=== PATIENT | female | born 1985 | race Caucasian/White ===

== ENCOUNTER 2020-01-09 04:28 | Inpatient (IN) | payer OTHER, SELFPAY ==
[2020-01-09] VITALS (76 sets, daily range): BP systolic 93–124; BP diastolic 49–89; PULSE 58–180; RESP 14–18; TEMP 36.3–36.9; O2SAT 97–100; BMI 34.3
--- NOTE | 2020-01-09 04:28 | LDADM ---
This patient, Sukhjinder Sanchez, was admitted to Labor/Delivery/Recovery 104 on 01/09/20 at 04:28. Plans for labor, pain management and were discussed with patient. Patient/family oriented to hospital policies and general routines including ID bracelet, bed and alarms, visiting hours, pain management, procedures, bathroom and other care routines, personal items, smoking policy, room service/diet and guest tray routines, infant security routines, and visiting hours. Patient/Family are encouraged to report perceived risks to care and to ask questions if they do not understand what they are told or what they should do. See OBIX for further documentation.
[2020-01-09] MEDS: AMPICILLIN 2 GM/NS 100 ML 2 GM/100 ML BAG IVPB (04:51)
[2020-01-09] MEDS: LACTATED RINGERS 1,000 ML 125 ML IV CONT ×3 (04:51→07:00)
[2020-01-09 05:13] LABS: Basophils Percent Auto 0.3 % (0.2-1.2); Eosinophils Absolute Auto 0.1 K/mm3 (0-0.3); Eosinophils Percent Auto 0.9 % (0-4.4); Hematocrit 34.4 % (37.0-47.0); Hemoglobin 11.4 g/dL (12.0-15.0); Immature Granulocyte Absolute 0.15 K/mm3 (0.00-0.031); Immature Granulocyte Percent A 1.3 % (0-0.5); Lymphocytes Absolute Auto 2.65 K/mm3 (0.9-3.2); Lymphocytes Percent Auto 22.6 % (18.3-44.2); Mean Corpuscular HGB Conc 33.1 g/dl (32-36); Mean Corpuscular Volume 81.3 fl (80-100); Mean Platelet Volume 10.3 fl (7.4-10.4); Monocytes Absolute Auto 0.6 K/mm3 (0.1-0.6); Monocytes Percent Auto 4.9 % (2.6-8.5); Neutrophils Absolute Auto 8.2 K/mm3 (1.3-6.7); Platelet Count Result 258 k/mm3 (150-375); Red Blood Count 4.23 M/mm3 (4.2-5.4); Red Cell Distribution Width 12.7 % (11.5-14.5); White Blood Count 11.7 K/mm3 (4.5-10.0)
--- NOTE | 2020-01-09 05:22 | P.PNAN_ITS ---
Anes - Initial Pre Proc Eval Procedure: labor epidural Date/Time: 01/09/20 05:22 Surgeon: Julius Chirinos MD Pre Op Diagnosis: Contractions Patient Data Age: 34 Gender: F Height: 1.6 m Weight: 88 kg Last Vital Signs Pulse 90 01/09/20 05:22 BP 112/61 01/09/20 05:22 Pulse Ox 100 01/09/20 05:20 Allergies Allergy/AdvReac Type Severity Reaction Status Date / Time No Known Allergies Allergy Verified 12/15/19 13:39 Home Medications Medication Instructions Recorded Confirmed Type PNV cmb#95-ferrous fumarate-FA 1 tablet PO DAILY 12/15/19 12/15/19 History [] Laboratory Tests 01/09/20 01/09/20 04:50 04:50 WBC 11.7 K/mm3 H K/mm3 (4.5-10.0) RBC 4.23 M/mm3 M/mm3 (4.2-5.4) Hgb 11.4 g/dL L g/dL (12.0-15.0) Hct 34.4 % L % (37.0-47.0) MCV 81.3 fl fl (80-100) MCH 27.0 pg pg (26-34) MCHC 33.1 g/dl g/dl (32-36) RDW 12.7 % % (11.5-14.5) Plt Count 258 k/mm3 k/mm3 (150-375) MPV 10.3 fl fl (7.4-10.4) Immature Gran % (Auto) 1.3 % H % (0-0.5) Neut % (Auto) 70.0 % % (45.5-73.1) Lymph % (Auto) 22.6 % % (18.3-44.2) [place] % (Auto) 4.9 % % (2.6-8.5) Eos % (Auto) 0.9 % % (0-4.4) Baso % (Auto) 0.3 % % (0.2-1.2) Lymph # (Auto) 2.65 K/mm3 K/mm3 (0.9-3.2) [place] # (Auto) 0.6 K/mm3 K/mm3 (0.1-0.6) Eos # (Auto) 0.1 K/mm3 K/mm3 (0-0.3) Baso # (Auto) 0.0 K/mm3 K/mm3 (0.0-0.1) Abs Immat Gran (auto) 0.15 K/mm3 H K/mm3 (0.00-0.031) Absolute Neuts (auto) 8.2 K/mm3 H K/mm3 (1.3-6.7) Absolute Nucleated RBC 0.0 K/mm3 K/mm3 (0.0-0.012) Nucleated RBC % 0.0 % % (0.0-0.2) RPR Pending Patient hx anesthesia problems: none Family hx anesthesia problems: none PMFSH Family History Family History Father Non Hodgkin's lymphoma Grandparent Diabetes mellitus Social History Social History Smoking status: Current every day smoker Tobacco type: cigarettes Substance use: never Spiritual care concerns: No Anes - Eval Final PreProcedure Day of Procedure 01/09/20 05:22 Patient weight: overweight Heart: regular rate and rhythm Lungs: clear to auscultation and normal air movement Airway: Mallampati scale Neurological: alert and oriented ASA classification: II Emergent: no Anesthetic plan: proceed Anesthesia type and monitoring: regional epidural and standard monitoring Informed Consent: The patient's anesthetic plan and its attendant risks and benefits were discussed with the patient/family/POA. Questions were solicited and answers provided to the satisfaction of the patient/family/POA.
--- NOTE | 2020-01-09 05:33 | WPDHPUPDATE1 ---
History and Physical Update Update Date/Time: 01/09/20 05:33 34 yo who presents in labor. She reports regular contractions. She denies vaginal bleeding or LOF. she endorses good FM. Her has been uncomplicated. History and Physical has been reviewed, including an updated exam of the patient. There are NO changes in the patient's condition. Risks, benefits, and alternatives have been discussed and questions answered. Patient agrees to proceed with procedure. A/P: 34 yo who presents in labor admit to L&D routine admission orders FHT cat 2 contractions q 4 min on toco GBS +, will start PCN in labor Rh + cvx 7 cm, intact expectant management
[2020-01-09] MEDS: AMPICILLIN 1 GM/NS 50 ML 1 GM/50 ML BAG IVPB (08:35)
[2020-01-09] MEDS: OXYTOCIN 30 UNITS/NS 500 ML 30 UNITS/500 ML BAG IV CONT (08:35)
--- NOTE | 2020-01-09 11:29 | PM.OBPRVD ---
OB - Delivery Note Procedure Delivery date: 01/09/20 Intrapartal events: None Induction method: none Delivery monitor: external FHT Route of delivery: Episiotomy description: None Laceration description: Vaginal - 1st Degree Delivery repair: vicryl Specimen: No Estimated blood loss (mL): 57 Anesthesia type: Epidural Disposition: floor [place] Baby Date of : 01/09/20 Time of : 11:21 Weeks of gestation at delivery: 39 presentation: vertex position: Right Occiput Anterior Placenta delivery description: Spontaneous cord vessel description: 3 Vessels and Reduced score one minute: 8 score five minutes: 9
[2020-01-09] MEDS: OXYTOCIN 30 UNITS/NS 500 ML 30 UNITS/500 ML BAG 125 UNITS IV CONT (11:58)
[2020-01-09] MEDS: LORATADINE 10 MG TABLET PO (12:35)
[2020-01-09 13:21] LABS: Rapid Plasma Reagin Non-Reactive (NonReactive)
[2020-01-09] MEDS: WITCH HAZEL 40 PADS 1 PAD TOPICAL (13:48)
[2020-01-09] MEDS: BENZOCAINE 20% AER SPR (*SP) 56 GM CAN 1 SPRAY TOPICAL (13:48)
--- NOTE | 2020-01-09 14:12 | PC.NURSE ---
Patient transferred to post room #291 via wheelchair. Support person present. Oriented to unit, room, information board, rooming in, admission packet and security measures. Patient verbalizes understanding.
[2020-01-09] MEDS: IBUPROFEN 600 MG TABLET PO ×2 (14:44→20:49)
[2020-01-09] MEDS: LANOLIN (LANSINOH) 7.5 GM CREAM 1 APPLIC TOPICAL (14:45)
[2020-01-09] MEDS: ACETAMINOPHEN 325 MG TABLET 650 MG PO ×2 (15:37→22:20)
[2020-01-10] MEDS: IBUPROFEN 600 MG TABLET PO ×3 (03:18→23:28)
[2020-01-10 04:12] LABS: Hematocrit 29.9 % (37.0-47.0); Hemoglobin 9.6 g/dL (12.0-15.0)
--- NOTE | 2020-01-10 06:10 | P.PNOB_ITS ---
OB - PN: Subj Subjective Date/time seen: 01/10/20 06:10 Patient comments: no complaints and pain well controlled baby status: doing well and nursing well OB - PN: Obj Data Labs CBC & Chem 7: 01/10/20 04:00 Labs: Laboratory Results - last 24 hr 01/09/20 01/09/20 01/10/20 04:50 04:50 04:00 Hgb 9.6 L Hct 29.9 L RPR Non-reactive Blood Type A Positive Antibody Screen Negative OB - PN A/P Plan day: 1 Plan: routine care, discharge home and follow up 6 weeks Time Spent With Patient Time: Total time spent is greater than 50% in coordination of care (as doc umented) at patient's floor/unit and/or counseling patient: Time with patient: less than 15 minutes Review of Systems Review of Systems: All systems reviewed & are unremarkable except as noted in HPI and below Exam Const: General: no acute distress Eyes: General: appearance normal, both eyes and all related structures Neck: Neck: supple and no JVD Thyroid: thyroid normal Resp: Effort & Inspection: normal respiratory effort Auscultation: clear to auscultation bilaterally Cardio: Rate: regular rate Rhythm: regular rhythm GI: Inspection: non-distended GI Palp: Yes Soft to palpation, No Tenderness to palpation present (GI) and No Guarding due to palpation present (GI) Auscultation: normal bowel sounds : General: Yes bladder normal to palpation External Female Exam: normal external appearance Speculum Exam - Vagina: normal vaginal discharge and No vaginal bleeding Speculum Exam - Cervix: nontender Bimanual exam- vagina & uterus: bladder normal to palpation and No Cervical tenderness present OB/external & speculum: No vaginal bleeding Skin: General skin exam: no rashes or lesions noted Extrem: General: normal to inspection and no edema Psych: Mental Status: mental status grossly normal Affect: normal affect
--- NOTE | 2020-01-10 06:11 | P.DS_ITS ---
DS: Admitting Diagnosis Admitting Diagnosis Admitting Diagnosis: term DS: Summary Time Spent with Patient Time attestation: Total time spent providing and/or coordinating discharge services: Exam Const: General: no acute distress Eyes: General: appearance normal, both eyes and all related structures Neck: Neck: supple and no JVD Thyroid: thyroid normal Resp: Effort & Inspection: normal respiratory effort Auscultation: clear to auscultation bilaterally Cardio: Rate: regular rate Rhythm: regular rhythm GI: Inspection: non-distended GI Palp: Yes Soft to palpation, No Tenderness to palpation present (GI) and No Guarding due to palpation present (GI) Auscultation: normal bowel sounds : General: Yes bladder normal to palpation External Female Exam: normal external appearance Speculum Exam - Vagina: normal vaginal discharge and No vaginal bleeding Speculum Exam - Cervix: nontender Bimanual exam- vagina & uterus: bladder normal to palpation and No Cervical tenderness present OB/external & speculum: No vaginal bleeding Skin: General skin exam: no rashes or lesions noted Extrem: General: normal to inspection and no edema Psych: Mental Status: mental status grossly normal Affect: normal affect DS: Data Data Completed and Pending Labs on day of discharge: Labs from last 24 hours 01/10/20 01/09/20 01/09/20 04:00 04:50 04:50 Hgb 9.6 L Hct 29.9 L RPR Non-reactive Blood Type A Positive Antibody Screen Negative Discharge Plan Discharge Attending physician on discharge: Julius Chirinos Consulting providers: Chandu Gamino Discharging Clinician: Julius hCirinos Patient Disposition: Home, Self-Care Activity: may shower, no straining and pelvic rest Diet: heart healthy Wound Care Instructions: follow printed instructions Patient Instructions: How to Stop Smoking (DC), Antibiotic Form Stand Alone Forms: General Discharge Information Follow-up/Referrals: Julius Chirinos MD [Physician] - Discharge Medications: Continued PNV cmb#95-ferrous fumarate-FA [] 28 mg iron- 800 mcg Tablet 1 tablet PO DAILY RF: 0 Date of admission: 01/09/20 04:28 Primary Care Provider: PHYSICIAN,QUENCHING CAR OPERATOR Admitting Provider: Julius Chirinos Attending physician on admission: Julius Chirinos
[2020-01-10] MEDS: POLYSACCHARIDE IRON COMPLEX 150 MG CAPSULE PO ×2 (07:44→17:09)
[2020-01-10] MEDS: MULTIVIT/MIN/PREN/FOL AC/IRON TABLET 1 TAB PO (07:44)
[2020-01-10] MEDS: ACETAMINOPHEN 325 MG TABLET 650 MG PO ×3 (07:45→20:05)
[2020-01-10 08:35] VITALS: BP 117/74; PULSE 69; RESP 16; TEMP 36.6; O2SAT 99
--- NOTE | 2020-01-10 08:52 | WPDANLDPN2 ---
Anes-Prog Note L&D Date/Time: 01/10/20 08:52 Comfortable throughout: labor and delivery Neuraxial method: epidural Epidural/Spinal procedure site: clean & non-tender Neuro status: Neuro function grossly intact. Cardiovascular status: normal Respiratory status: normal Airway patency: baseline Mental status: baseline Post-Op hydration status: normal Vital Signs: Last Vital Signs Temp 36.8 C 01/09/20 18:42 Pulse 58 L 01/09/20 18:42 Resp 14 01/09/20 18:42 BP 110/69 01/09/20 18:42 Pulse Ox 98 01/09/20 18:42 Patient feedback: Patient satisfied with anesthetic care.
--- NOTE | 2020-01-10 13:45 | PC.NURSE ---
1200 breast feeding note; visited with mother; she reports baby had just finished a feeding; reviewed q2-3h and on demand breast feedings, duration of feedings, nipple care, importance of deep maintained latch. She denies nipple pain. She reports strong breast feeding history with her first baby, and seems comfortable and confident with this baby, reporting baby has been an eager breast feeder. Reviewed s/s of mastitis, and care of breasts through engorgement. LC contact information shown to pt. Pt and FOB seemed attentive and voiced understanding of information shared.
[2020-01-10] MEDS: DOCUSATE SODIUM 100 MG CAPSULE PO (17:09)
[2020-01-10 20:00] VITALS: BP 125/82; PULSE 91; RESP 16; TEMP 36.8
[2020-01-11] MEDS: ACETAMINOPHEN 325 MG TABLET 650 MG PO ×2 (02:16→10:10)
--- NOTE | 2020-01-11 06:44 | P.PNOB_ITS ---
OB - PN: Subj Subjective Date/time seen: 01/11/20 06:44 Patient comments: no complaints baby status: doing well and nursing well OB - PN: Obj Data Labs CBC & Chem 7: 01/10/20 04:00 OB - PN A/P Plan day: 2 Plan: routine care, discharge home and follow up 6 weeks Time Spent With Patient Time: Total time spent is greater than 50% in coordination of care (as documented) at patient's floor/unit and/or counseling patient: Time with patient: less than 15 minutes Review of Systems Review of Systems: All systems reviewed & are unremarkable except as noted in HPI and below Exam Const: General: no acute distress Eyes: General: appearance normal, both eyes and all related structures Neck: Neck: supple and no JVD Thyroid: thyroid normal Resp: Effort & Inspection: normal respiratory effort Auscultation: clear to auscultation bilaterally Cardio: Rate: regular rate Rhythm: regular rhythm GI: Inspection: non-distended GI Palp: Yes Soft to palpation, No Tenderness to palpation present (GI) and No Guarding due to palpation present (GI) Auscultation: normal bowel sounds : General: Yes bladder normal to palpation External Female Exam: normal external appearance Speculum Exam - Vagina: normal vaginal discharge and No v aginal bleeding Speculum Exam - Cervix: nontender Bimanual exam- vagina & uterus: bladder normal to palpation and No Cervical tenderness present OB/external & speculum: No vaginal bleeding Skin: General skin exam: no rashes or lesions noted Extrem: General: normal to inspection and no edema Psych: Mental Status: mental status grossly normal Affect: normal affect
[2020-01-11 08:05] VITALS: BP 131/75; PULSE 86; RESP 18; TEMP 37.1; O2SAT 98
[2020-01-11] MEDS: MULTIVIT/MIN/PREN/FOL AC/IRON TABLET 1 TAB PO (10:06)
[2020-01-11] MEDS: DOCUSATE SODIUM 100 MG CAPSULE PO (10:06)
[2020-01-11] MEDS: IBUPROFEN 600 MG TABLET PO (10:07)
[2020-01-11] MEDS: POLYSACCHARIDE IRON COMPLEX 150 MG CAPSULE PO (10:07)
--- NOTE | 2020-01-11 11:10 | PC.NURSE ---
Consulted with patient, upon entering mother has infant to breast. Mother has latched deeply in cross cradle. Infant nursed eagerly, with steady draws and frequent swallowing noted. Reviewed positioning/alignment , holding breast and asymmetrical latch on. Reviewed signs of a correct latch, effective nursing and suck swallow ratio. Nipple care reviewed. Reviewed feeding cues, frequencies, duration of feedings, feeding elimination flow sheet, and signs of adequate intake. Mother reports she breastfed last child for 11 months and plans to allow this infant to breastfeed as long as she will. Mother is feeding as required and waking to feed if needed. Infant has had at least 8 effective feedings in the past 24 hours, and is currently meeting outcomes for weight, output, jaundice and feeding frequencies. Mother states she feels confident to continue effective at home. Reviewed transition to breast milk, signs of adequate intake, and engorgement/relief. Instructed to call ICP if intake/output less than required. Reviewed regular medications mother is taking. Information provided per Catherine. Reviewed community resources on the [facility] website and in the Mom/Baby guide. Information on outpatient services provided. Mother has no further questions at this time.
[2020-01-11 15:00] VITALS: BP 124/78; PULSE 75; RESP 16; TEMP 37.6; O2SAT 95
[2020-01-13 11:13] VITALS: BP 137/90; PULSE 91; RESP 20
== END 2020-01-11 13:55 | disposition home or self-care (01) | DRG 807 ==
LOC: ANHLDR 05:17 → ANHOB2 14:24
PROVIDERS: Admitting Provider Obstetrics & Gynecology; Visit Provider Obstetrics & Gynecology
DX: O99.824 Streptococcus B carrier state complicating childbirth (principal); Z37.0 Single live birth; Z3A.40 40 weeks gestation of pregnancy; O76 Abnormality in fetal heart rate and rhythm complicating labor and delivery; O70.0 First degree perineal laceration during delivery
CPT/HCPCS: 36415; 85014; 85018; 85025; 86592; 86850; 86900; 86901; A9270; J0290; J2590; J2795; J7120

== ENCOUNTER 2023-02-20 02:32 | Emergency (ER) | payer OTHER, SELFPAY ==
--- NOTE | ~2023-02-20 | CT_ITS ---
EXAMINATION: CT abdomen pelvis w con DATE: 02/20/2023 04:58 INDICATION: Left abdominal pain. TECHNIQUE: Computed tomography (CT) of the abdomen and pelvis was performed with 100 mL Omnipaque 350 intravenous contrast. Automated exposure control and iterative reconstruction technique were employe d. The dose-length product was 635.21 mGy-cm. COMPARISON: None. FINDINGS: The visualized portions of the lung bases demonstrate mild atelectasis. No pleural effusion . The heart size is normal. No pericardial effusion. There is a 10 mm cyst in the liver. The gallblad evens, spleen, pancreas, adrenal glands, and kidneys are normal. There is an intrauterine device in abn ormal position. One prong sits in the myometrium, and the second prong perforates through the myometr ium. There are no dilated loops of bowel. The appendix is normal. There is mild subcutaneous fat stra nding with foci of gas in left flank. There are no pathologically enlarged lymph nodes. There is no f ree intraperitoneal fluid. There is mild osteoarthritis of the sacroiliac joints. IMPRESSION: 1. Mild subcutaneous fat stranding with foci of gas in left flank. This finding may be secondary to t rauma such as an injection or laceration. Correlate clinically for cellulitis or necrotizing fasciiti s. 2. Intrauterine device in abnormal position with perforation through the myometrium. Reviewed, dictated and finalized at location E. IMPRESSION: 1. Mild subcutaneous fat stranding with foci of gas in left flank. This finding may be secondary to trauma such as an injection or laceration. Correlate clini juan for cellulitis or necrotizing fasciitis. 2. Intrauterine device in abnormal position with perforation through the myomet rium.
[2023-02-20 02:35] VITALS: BP 168/98; PULSE 84; RESP 14; TEMP 36.2; O2SAT 100
[2023-02-20] MEDS: SODIUM CHLORIDE 0.9% IV 1,000 ML 999 ML IV CONT (03:04)
[2023-02-20 03:06] LABS: Basophils Percent Auto 0.3 % (0.2-1.2); Eosinophils Absolute Auto 0.1 K/mm3 (0-0.3); Eosinophils Percent Auto 0.5 % (0-4.4); Hematocrit 43.4 % (37.0-47.0); Hemoglobin 14.8 g/dL (12.0-15.0); Immature Granulocyte Absolute 0.04 K/mm3 (0.00-0.031); Immature Granulocyte Percent A 0.4 % (0-0.5); Mean Corpuscular HGB Conc 34.1 g/dl (32-36); Mean Corpuscular Volume 84.9 fl (80-100); Mean Platelet Volume 9.6 fl (7.4-10.4); Monocytes Absolute Auto 0.5 K/mm3 (0.1-0.6); Monocytes Percent Auto 4.6 % (2.6-8.5); Neutrophils Absolute Auto 8.4 K/mm3 (1.3-6.7); Neutrophils Percent Auto 73.2 % (45.5-73.1); Platelet Count Result 305 k/mm3 (150-375); Red Blood Count 5.11 M/mm3 (4.2-5.4); Red Cell Distribution Width 12.1 % (11.5-14.5); White Blood Count 11.4 K/mm3 (4.5-10.0)
[2023-02-20] MEDS: KETOROLAC 30 MG/ML VIAL (*BKC) IV PUSH (03:06)
[2023-02-20] MEDS: ONDANSETRON INJ 4 MG/2 ML VIAL IV PUSH (03:06)
--- NOTE | 2023-02-20 03:14 | ED.GENADULT ---
HPI - General Adult General Chief complaint: Abdominal Pain Stated complaint: vomiting, abd pain, left lower back pain Time Seen by Provider: 02/20/23 02:43 History of Present Illness HPI narrative: Patient 37-year-old female who presents the emergency room with chief complaint of abdominal pain nausea and vomiting. Patient reports that she ate at [employer] and reports that was on evening. The patient states that all throughout the morning she had multiple episodes of nausea and vomiting reports she has cramping sensations throughout her abdomen. The patient reports that this she had no diarrhea with this reports her last bowel movement was on . Related Data Home Medications Medication Instructions Recorded Confirmed vit no.95-ferrous 1 tablet PO DAILY 12/15/19 12/15/19 fumarate 28 mg-folic acid 800 mcg tablet () Allergies Allergy/AdvReac Type Severity Reaction Status Date / Time No Known Allergies Allergy Verified 02/20/23 02:32 Review of Systems Review of Systems: A 10 system review of systems was completed on the patient and is negative except for what is stated in the HPI. Nursing and ancillary documentation was reviewed. [facility] Family History Family History Father Non Hodgkin's lymphoma Grandparent Diabetes mellitus Social History Social History Smoking status: Current every day smoker Tobacco type: cigarettes Substance use: never Spiritual care concerns: No Exam Narrative: GENERAL: Well-appearing, well-nourished, and in no acute distress. HEAD: Normocephalic, atraumatic. EYES: PERRLA and EOMI. ENT: Nares clear, no rhinorrhea or epistaxis. Mucous membranes moist. NECK: Supple. CHEST: Clear to auscultation. No respiratory distress. HEART: Regular rate and rhythm. No murmur heard. Normal peripheral pulses. ABDOMEN: Soft, tender to palpation in the epigastric region, nondistended, normal active bowel sounds. EXTREMITIES: Normal range of motion. No edema. SKIN: Warm, dry, no rash. NEURO: No focal deficits. Alert and oriented x3. PSYCH: Normal mood and affect. Course Vital Signs Vital signs: Vital Signs Temperature 36.2 C L 02/20/23 02:35 Pulse Rate 84 02/20/23 02:35 Respiratory Rate 14 02/20/23 02:35 Blood Pressure 168/98 H 02/20/23 02:35 Pulse Oximetry 100 02/20/23 02:35 Oxygen Delivery Room Air 02/20/23 02:35 Temperature 36.2 C L 02/20/23 02:35 Pulse Rate 84 02/20/23 02:35 Respiratory Rate 14 02/20/23 02:35 Blood Pressure 168/98 H 02/20/23 02:35 Pulse Oximetry 100 02/20/23 02:35 Oxygen Delivery Room Air 02/20/23 02:35 Procedures Other Procedure Procedure 1: Other Procedure: Procedure: Removal of IUD With a speculum the cervix was visualized and the IUD strings were visualized and grafts with a ring forcep and under gentle traction the IUD was removed Medical Decision Making MDM Narrative Medical decision making narrative: Differential diagnosis includes gastroenteritis, UTI, intra-abdominal infection colitis diverticulitis. Laboratory studies were obtained which showed a white count of 11.4 electrolytes and liver enzymes are within normal limits urinalysis showed 10-15 white blood cells in the urine The patient will be started on Keflex for UTI will be started on Zofran for nausea and vomiting. CT scan of the abdomen pelvis showed no acute intra-abdominal pathology but did show the IUD displaced into the myometrium. Due to the displacement of the IUD the case was discussed with Dr. Strauss who is on for Dr. Shanon Khalil recommended attempting to remove the IUD as it will need to be removed due to the displacement IUD was successfully removed without difficulty in the emergency department Vital Signs Vital Signs: Vital Signs Te
[2023-02-20 03:18] LABS: Alanine Aminotransferase 15 U/L (6-35); Albumin Level 4.8 g/dL (3.5-5.1); Alkaline Phosphatase 70 U/L (38-126); Anion Gap 9 mmol/L (8-16); Aspartate Amino Transferase 27 U/L (14-36); Bilirubin,Total 0.7 mg/dL (0.2-1.3); Blood Urea Nitrogen 9 mg/dL (7-17); Calcium 9.3 mg/dL (8.4-10.2); Carbon Dioxide 25 mmol/L (22-30); Chloride 102 mmol/L (98-107); Estimated CRCL calculation 109 ml/min; Estimated Glomerular Filt Rate > 60; Glucose 119 mg/dL (65-110); Lipase 55 U/L (23-300); Potassium 3.6 mmol/L (3.4-5.0); Sodium 136 mmol/L (137-145)
[2023-02-20] MEDS: DICYCLOMINE HCL INJ 20 MG/2 ML VIAL IM (03:33)
[2023-02-20 03:46] LABS: Appearance Urine Clear (Clear); Bilirubin Urine 1+ (Negative); Blood Urine 3+ (Negative); Color Urine Red (Yellow); Glucose Urine UA Trace mg/dL (Negative); Ketones Urine 2+ mg/dL (Negative); Leukocyte Esterase Ur Negative LEU/UL (Negative); Nitrate Urine Negative (Negative); Protein Urine 3+ mg/dL (Negative); Specific Grav Ur >= 1.030 (1.001-1.035)
[2023-02-20 03:47] LABS: Add Urine Microscopic? YES
[2023-02-20 03:48] LABS: RBC Urine >100 /hpf (0-2)
[2023-02-20 04:22] LABS: Pregnancy On Board Control Positive; Urine Pregnancy Test Negative
[2023-02-20] MEDS: MORPHINE SULFATE (*CRX) 4 MG/ML INJ IV PUSH (04:35)
[2023-02-20] MEDS: PROCHLORPERAZINE EDISYLATE 10 MG/2 ML VIAL IV PUSH (04:35)
[2023-02-20 06:26] VITALS: BP 143/90; PULSE 64; RESP 15; O2SAT 98
== END 2023-02-20 06:29 | disposition home or self-care (01) ==
PROVIDERS: Emergency Provider Emergency Medicine
DX: N30.00 Acute cystitis without hematuria (principal); T83.32XA Displacement of intrauterine contraceptive device, initial encounter; R11.2 Nausea with vomiting, unspecified; R10.84 Generalized abdominal pain; F17.210 Nicotine dependence, cigarettes, uncomplicated
CPT/HCPCS: 36415; 74177; 80053; 81001; 81025; 83690; 85025; 87086; 87088; 96361; 96372; 96374; 96375; 99284; J0500; J0780; J1885; J2270; J2405; J7030; Q9967